=== PATIENT | female | born 1965 | race American Indian/Alaskan Native ===

== ENCOUNTER 2017-01-10 18:01 | Emergency (ER) | payer OTHER ==
[2017-01-10 18:50] VITALS: BP 155/88; PULSE 73; RESP 18; TEMP 98; O2SAT 100
--- NOTE | 2017-01-10 20:27 | ED PDOC ---
Arrival/HPI - General Chief Complaint: Eye Problem Time Seen by Provider: 01/10/17 19:53 Historian: Patient - History of Present Illness Narrative History of Present Illness (Text): 01/10/17 20:24 Pt. to Emergency department for evaluation of blood noted on white part of right eye.Pt. denies any hx. of trauma but states she did rub her eye.No visual disturbances.No pain.Vision is normal. Past Medical History - Provider Review Nursing Documentation Reviewed: Yes - Travel History Have you recently traveled outside [place] w/in the past 3 mons?: No - Infectious Disease Hx of Infectious Diseases: None - Psychiatric Hx Substance Use: No Family/Social History - Physician Review Nursing Documentation Reviewed: Yes Family/Social History: No Known Family HX Smoking Status: Never Smoked Hx Alcohol Use: Yes Frequency of alcohol use: Socially Hx Substance Use: No Allergies/Home Meds Allergies/Adverse Reactions: Allergies No Known Allergies Allergy (Verified 01/10/17 18:50) Review of Systems - Review of Systems Constitutional: Normal Eyes: Other (blood to surface of right eye) ENT: Normal Respiratory: Normal Cardiovascular: Normal Gastrointestinal: Normal Genitourinary Female: Normal Musculoskeletal: Normal Skin: Normal Neurological: Normal Endocrine: Normal Hemo/Lymphatic: Normal Psychiatric: Normal Physical Exam Vital Signs Temp Pulse Resp BP Pulse Ox 01/10/17 18:47 98 F 73 18 155/88 H 100 Temperature: Afebrile Blood Pressure: Normal Pulse: Regular Respiratory Rate: Normal Appearance: Positive for: Well-Appearing, Non-Toxic, Comfortable Pain Distress: None Mental Status: Positive for: Alert and Oriented X 3 - Systems Exam Head: Present: Atraumatic, Normocephalic Pupils: Present: PERRL Extroacular Muscles: Present: EOMI Conjunctiva: Present: Other (small right subconjunctival hemorrage) Ears: Present: Normal Respiratory/Chest: Present: Clear to Auscultation, Good Air Exchange. No: Respiratory Distress, Accessory Muscle Use Cardiovascular: Present: Regular Rate and Rhythm, Normal S1, S2. No: Murmurs Neurological: Present: GCS=15, CN II-XII Intact, Speech Normal, Motor Func Grossly Intact, Normal Sensory Function Disposition/Present on Arrival - Present on Arrival Any Indicators Present on Arrival: No History of DVT/PE: No History of Uncontrolled Diabetes: No Urinary Catheter: No History of Decub. Ulcer: No History Surgical Site Infection Following: None - Disposition Have Diagnosis and Disposition been Completed?: Yes Diagnosis: Subconjunctival hemorrhage of right eye Disposition: HOME/ ROUTINE Disposition Time: 20:28 Patient Plan: Discharge Condition: GOOD Discharge Instructions (ExitCare): Subconjunctival Hemorrhage (ED) Additional Instructions: Avoid rubbing your eye/eyedrops as prescribed/follow up with the opthalmologist Prescriptions: Tobramycin 0.3% [Tobrex 0.3% Ophth Soln] 1 drop OD TID #1 bottle Referrals: Albaro Alvarado [Staff Provider] - Follow up with primary Forms: [facility] ([place]), WORK NOTE
== END 2017-01-10 20:48 | disposition home or self-care (01) ==
LOC: ED 18:01
DX: H11.31 Conjunctival hemorrhage, right eye (principal)